=== PATIENT | female | born 1975 | race Caucasian/White ===

== ENCOUNTER 2017-11-17 19:23 | Inpatient (IN) | payer BC ==
--- NOTE | 2017-11-17 19:41 | PDOC ---
History of Present Illness - General Stated Complaint: LAP BAND SURGERY Time Seen by Provider: 11/17/17 19:41 - History of Present Illness Initial Comments: 11/17/17 19:47 42 year old female with PMH of lap band surgery (2011) who presents with 3 days of vomiting. Notes she was at an event on evening had some champagne and started vomiting. Vomiting persisted, patient went to ED in [facility] where surgeons in consultation with patient's primary surgeon (Dr. Cadena) deflated lap band. Patient instructed to come to ED at our hospital for evaluation and admission for lap band removal. Patient denies chest pain, shortness of breath, fevers/chills, dysuria/ hematuria. NKDA Surgical: lap band gastrectomy Social: denies cigarettes, social alcohol, denies recreational drugs PMD: Past History - Past Medical History Allergies/Adverse Reactions: Allergies Allergy/AdvReac Type Severity Reaction Status Date / Time tomato Allergy Verified 11/17/17 19:45 Home Medications: Ambulatory Orders NK [No Known Home Medication] 11/17/17 Anemia: Yes COPD: No Other medical history: donated kidney - Surgical History Abdominal Surgery: Yes (Lap band, tightening 11/15/17) Cholecystectomy: Yes - Suicide/Smoking/Psychosocial Hx Smoking History: Never smoked Review of Systems - Review of Systems Constitutional: No: Chills, Fever HEENTM: No: Eye Pain, Recent change in vision Respiratory: No: Shortness of Breath, Stridor, Wheezing Cardiac (ROS): No: Chest Pain, Lightheadedness, Palpitations, Syncope ABD/GI: Yes: Nausea, Vomiting. No: Constipated, Diarrhea : No: Burning, Dysuria *Physical Exam - Physical Exam General Appearance: Yes: Nourished, Appropriately Dressed Neck: positive: Trachea midline, Supple Respiratory/Chest: positive: Lungs Clear, Normal Breath Sounds Cardiovascular: positive: S1, S2 Gastrointestinal/Abdominal: positive: Flat, Soft. negative: Guarding, Rebound, Tenderness, Hernia, Mass Extremity: positive: Normal Capillary Refill, Normal Inspection Integumentary: positive: Normal Color, Dry, Warm Neurologic: positive: Fully Oriented, Alert ED Treatment Course - LABORATORY CBC & Chemistry Diagram: 11/17/17 19:30 11/17/17 19:30 Medical Decision Making - Medical Decision Making 11/17/17 19:47 42 year old non-toxic female presents with dislodged lap band. As per Dr. Bliss patient had flouroscopic evaluation which should dislodged lap band. Will check electrolytes as patient has 2 day h/o emesis, replete as necessary and admit to medicine. As per nursing staff patient has pre-arranged bed on inpatient medicine floor. 11/17/17 20:23 CMP unremarkable. BP 107/67. Will give 1 L NS + Morphine for pain. Hospitalist paged for admission. 11/17/17 21:02 Case d/w Dr. Tovar. Accepts for admission. *DC/Admit/Observation/Transfer Diagnosis at time of Disposition: Admission for adjustment of gastric lap band - Discharge Dispostion Condition at time of disposition: Fair Decision to Admit order: Yes - Referrals - Patient Instructions - Post Discharge Activity
[2017-11-17 19:45] VITALS: BMI 28.6
[2017-11-17 19:48] LABS: BASO % 0.4 % (0-2.0); HEMATOCRIT 32.1 % (32.4-45.2); HEMOGLOBIN 10.2 GM/dL (10.7-15.3); LYMPH % 2.6 % (8-40); MCH 22.9 pg (25.7-33.7); MCHC 31.8 g/dl (32.0-36.0); MEAN CELL VOLUME 72.2 fl (80-96); MONO % 3.5 % (3.8-10.2); NEUT % 93.5 % (42.8-82.8); PLATELET COUNT 207 K/MM3 (134-434); RBC 4.44 M/mm3 (3.60-5.2); WHITE BLOOD COUNT 10.7 K/mm3 (4.0-10.0)
--- NOTE | 2017-11-17 20:02 | PDOC ---
Attending Attestation - HPI HPI: 11/17/17 20:32 Patient is a 42 year old female with no significant past medical history who presents to the ED with complaints of vomiting that began x3 days ago. Patient reports experiencing multiple episodes of vomiting that began 3 days ago as well as associated symptoms of diffuse abdominal pain. She reports being at an event when she began to experience intense abdominal pain after consuming alcohol, prompting her to go to [facility] for further evaluation. She reports physicians consulted with her surgeon who then advised her to come into the ED to be admitted for lap band removal . Denies chest pain, sob. Denies fevers, chills. Denies contact with sick individuals, out of state travelling. Denies diarrhea, constipation, dysuria, hematuria. Denies any other symptoms. Allergies: Tomato Social history: No smoking. No alcohol. No illicit drugs. Surgical history: lap band gastrectomy (s/p 2011) PMD: None Surgeon: Dr. Cadena - Physicial Exam PE: 11/17/17 21:06 GENERAL: Awake, alert, and fully oriented, in no acute distress HEAD: No signs of trauma EYES: +Sunken PERRLA, EOMI, sclera anicteric, conjunctiva clear ENT: Auricles normal inspection, hearing grossly normal, nares patent, oropharynx clear without exudates. Moist mucosa NECK: Normal ROM, supple, no lymphadenopathy, JVD, or masses LUNGS: Breath sounds equal, clear to auscultation bilaterally. No wheezes, and no crackles HEART: Regular rate and rhythm, normal S1 and S2, no murmurs, rubs or gallops ABDOMEN: +Slight epigastric tenderness. Soft, nontender, normoactive bowel sounds. No guarding, no rebound. No masses EXTREMITIES: Normal range of motion, no edema. No clubbing or cyanosis. No cords, erythema, or tenderness NEUROLOGICAL: Cranial nerves II through XII grossly intact. Normal speech, normal gait SKIN: +Pale Warm, Dry, no rashes or lesions noted. <Theodore Cotto - Last Filed: 11/17/17 21:06> - Resident Resident Name: Ivy Recio - ED Attending Attestation I have performed the following: I have examined & evaluated the patient, The case was reviewed & discussed with the resident, I agree w/resident's findings & plan - Medical Decision Making 11/17/17 21:05 Pt refusing CXR; she will be admitted to Hospitalist. Dr Cadena will come see the patient tomorrow. <Shwetha Conroy - Last Filed: 11/18/17 20:35>
[2017-11-17 20:16] LABS: ALBUMIN 3.5 g/dl (3.4-5.0); ANION GAP 9 (8-16); BLOOD UREA NITROGEN 20 mg/dL (7-18); CALCIUM 8.9 mg/dL (8.5-10.1); CHLORIDE 111 mmol/L (98-107); CO2 22 mmol/L (21-32); CREATININE 0.8 mg/dL (0.55-1.02); GLUCOSE,RANDOM 128 mg/dL (74-106); POTASSIUM 3.9 mmol/L (3.5-5.1); SGOT/AST 57 U/L (15-37); SGPT/ALT 32 U/L (12-78); SODIUM 142 mmol/L (136-145)
[2017-11-17 20:18] LABS: ALK PHOS 99 U/L (45-117); TOT PROT 6.4 g/dl (6.4-8.2)
[2017-11-17] MEDS ORDERED: SODIUM CHLORIDE 0.9% 500 ML INFUS.BAG IV ONE (20:25)
[2017-11-17 20:26] LABS: INR 1.09 (0.82-1.09); PROTHROMBIN TIME (PATIENT) 12.3 SEC (9.7-13.0)
[2017-11-17] MEDS ORDERED: morphine CARPU-JECT 2 MG/1 ML DISP.SYRIN IVPUSH ONE (20:26)
[2017-11-17 20:28] LABS: ACTIVATED PTT 24.8 SECONDS (25.2-36.5)
[2017-11-17] MEDS ORDERED: MORPHINE SULFATE 2 MG/ML VIAL ONE (20:34)
[2017-11-17] MEDS ORDERED: METOCLOPRAMIDE HCL INJECTION 10 MG/2 ML VIAL ONE (20:43)
[2017-11-17 20:52] LABS: ANISOCYTOSIS 1+; MACROCYTOSIS 1+; OVALOCYTE 1+; PLATELET ESTIMATE ADEQUATE
[2017-11-17] MEDS ORDERED: METOCLOPRAMIDE HCL INJECTION 10 MG/2 ML VIAL IVPUSH ONE (20:52)
[2017-11-17] MEDS ORDERED: ONDANSETRON 4 MG/2 ML VIAL IVPUSH PRN (21:05)
[2017-11-17] MEDS ORDERED: ACETAMINOPHEN 325 MG TABLET (FP) PO PRN (21:16)
--- NOTE | 2017-11-17 21:22 | HP ---
CHIEF COMPLAINT: vomiting, lap band dysfunction HISTORY OF PRESENT ILLNESS: 42 year old female with PMH of lap band surgery (2011) and "gastric bypass" who presents with 3 days of vomiting and abdominal pain. Patient was at a constitution party several days ago, had 1 glass of champagne and began to vomit, have chills and diaphoresis. She visited the emergency department in [place], [place], where she was told that her lap band was dislodged. Patient's surgery was performed by Dr. Cadena and so patient was sent here for evaluation and lap band removal. Currently patient is not complaining of any vomiting and pain. Denies chest pain , SOB, nausea, vomiting, diarrhea, fevers, chills. Patient had a colonoscopy in the past and is due for one this year. She has a family history of colorectal cancer in the father. ER course was notable for: (1) WBC 10.7 (2) (3) Recent Travel: none PAST MEDICAL HISTORY: none PAST SURGICAL HISTORY: lap band insertion, gastric bypass? Social History: Smoking: denies Alcohol: denies Drugs: denies Allergies tomato Allergy (Verified 11/17/17 19:45) Family History: colon cancer in father HOME MEDICATIONS: Home Medications Medication Instructions Recorded NK [No Known Home Medication] 11/17/17 REVIEW OF SYSTEMS CONSTITUTIONAL: Absent: fever, chills, diaphoresis, generalized weakness, malaise, loss of appetite, weight change HEENT: Absent: rhinorrhea, nasal congestion, throat pain, throat swelling, difficulty swallowing, mouth swelling, ear pain, eye pain, visual changes CARDIOVASCULAR: Absent: chest pain, syncope, palpitations, irregular heart rate, lightheadedness , peripheral edema RESPIRATORY: Absent: cough, shortness of breath, dyspnea with exertion, orthopnea, wheezing, stridor, hemoptysis GASTROINTESTINAL: Absent: abdominal pain, abdominal distension, nausea, vomiting, diarrhea, constipation, melena, hematochezia GENITOURINARY: Absent: dysuria, frequency, urgency, hesitancy, hematuria, flank pain, genital pain MUSCULOSKELETAL: Absent: myalgia, arthralgia, joint swelling, back pain, neck pain SKIN: Absent: rash, itching, pallor HEMATOLOGIC/IMMUNOLOGIC: Absent: easy bleeding, easy bruising, lymphadenopathy, frequent infections ENDOCRINE: Absent: unexplained weight gain, unexplained weight loss, heat intolerance, cold intolerance NEUROLOGIC: Absent: headache, focal weakness or paresthesias, dizziness, unsteady gait, seizure, mental status changes, bladder or bowel incontinence PSYCHIATRIC: Absent: anxiety, depression, suicidal or homicidal ideation, hallucinations. PHYSICAL EXAMINATION Vital Signs - 24 hr 11/17/17 11/17/17 19:25 20:42 Temperature 98.5 F Pulse Rate 90 Respiratory 1 L Rate Blood Pressure 107/76 O2 Sat by Pulse 100 100 Oximetry (%) GENERAL: A&Ox3, no acute distress EYES: PERRLA, EOMI ENT: Moist mucus membranes NECK: No JVD LUNGS: CTA, no wheezes HEART: RRR, no murmurs ABDOMEN: Soft, nontender, lap band palpated in mid-epigastrum, diminished bowel sounds noted MUSCULOSKELETAL: No CVA Tenderness EXTREMITIES: 2+ pulses, no edema. NEUROLOGICAL: Cranial nerves II-XII intact. Laboratory Results - last 24 hr 11/17/17 11/17/17 11/17/17 19:30 19:30 19:30 WBC 10.7 H RBC 4.44 Hgb 10.2 L Hct 32.1 L MCV 72.2 L MCH 22.9 L MCHC 31.8 L RDW 18.0 H Plt Count 207 MPV 9.0 Absolute Neuts (auto) 10.0 Total Counted 100 Neutrophils % 93.5 H Neutrophils % (Manual) 94.0 H Lymphocytes % 2.6 L Lymphocytes % (Manual) 5.0 L Monocytes % 3.5 L Monocytes % (Manual) 1 L Eosinophils % 0.0 Basophils % 0.4 Nucleated RBC % 0 Hypochromia 1+ Platelet Estimate Adequate Platelet Comment No clumping noted Anisocytosis 1+ Macrocytosis 1+ Ovalocytes 1+ PT with INR 12.30 INR 1.09 PTT (Actin FS) 24.8 L Sodium 142 Potassium 3.9 Chloride 111 H Carbon Dioxide 22 Anion Gap 9 BUN 20 H Creatinine 0.8 Creat Clearance w eGFR > 60 Random Glucose 128 H Calcium 8.9 Total Bilirubin 1.0 AST 57 H ALT 32 Alkaline Phosphatase 99 Total Protein 6.4 Albumin 3.5 ASSESSMENT/PLAN: 42 year old female with a hx of lap band placement/gastric bypass (questionable ) presents for vomiting and abdominal pain of 3 days duration likely 2/2 lap band dysfunction #Abdominal pain 2/2 lap band dysfunction: resolving, patient is not in pain at present -consult Dr. Cadena appreciated -tylenol for pain -NPO for procedure tomorrow -IVF hydration w/ NS @ 83cc/hr -zofran for nausea #FEN -IVF w/ NS @ 83cc/hr -replete lytes in AM -NPO #Prophylaxis -SCDs #Disposition -admit med surg Visit type - Emergency Visit Emergency Visit: Yes ED Registration Date: 11/17/17 Care time: The patient presented to the Emergency Department on the above date and was hospitalized for further evaluation of their emergent condition. - New Patient This patient is new to me today: Yes Date on this admission: 11/18/17 - Critical Care Critical Care patient: No Hospitalist Screening - Colonoscopy Questionnaire Colonoscopy Questionnaire: Colonoscopy Questionnaire - Patient: 50 - 75 years old and never had a screening colonoscopy: Unknown History of colon or rectal polyps, or CA: Unknown History of IBD, Crohn's disease or UC: Unknown History of abdominal radiation therapy as a child: Unknown - Relative: 1 with colon or rectal CA, or polyps at age 60 or younger: Unknown Colon or rectal CA diagnosed at age 45 or younger: Unknown Multiple relatives with colon or rectal CA: Unknown - Outcome: Screening Result: Negative Screen
--- NOTE | 2017-11-18 03:18 | PN ---
Teaching Attending Note Name of Resident: Diony Zhu ATTENDING PHYSICIAN STATEMENT I saw and evaluated the patient. Chart, data, imaging reviewed. I reviewed the resident's note and discussed the case with the resident. I agree with the resident's findings and plan as documented. SUBJECTIVE: 42 year old female with PMH of lap band surgery (2011) and "gastric bypass" c/o 3 days of vomiting and abdominal pain which started about 4 days ago, roughly the same time after pt's lap band was adjusted by Dr. Cadena in the office. She was seen in [facility], underwent - Barium swallow? study, was informed that her lap band was dislodged and urged to go to [facility] to see Dr. Cadena. OBJECTIVE: Last Vital Signs Temp Pulse Resp BP Pulse Ox 98.0 F 67 18 115/70 99 11/17/17 22:00 11/17/17 22:00 11/18/17 04:00 11/17/17 22:00 11/18/17 04:00 general- nad, aaox3 heent -moist oral mucosa neck -supple cv-s1+s2+rrr chest cta abdomen-soft, bs+, nt ext- no pedal edema Abnormal Lab Results 11/17/17 11/17/17 11/17/17 19:30 19:30 19:30 WBC 10.7 H Hgb 10.2 L Hct 32.1 L MCV 72.2 L MCH 22.9 L MCHC 31.8 L RDW 18.0 H Neutrophils % 93.5 H Neutrophils % (Manual) 94.0 H Lymphocytes % 2.6 L Lymphocytes % (Manual) 5.0 L Monocytes % 3.5 L Monocytes % (Manual) 1 L PTT (Actin FS) 24.8 L Chloride 111 H BUN 20 H Random Glucose 128 H AST 57 H ASSESSMENT AND PLAN: 42yo woman with nausea/vomiting likely secondary to dislodged lap band. - observation -surgery consult- Dr. Cadena -IV fluid hydration -zofran IV prn if nausea or vomiting -NPO for now -heparin sc for dvt prophylaxis -type and screen, coags
[2017-11-18 08:03] LABS: HEMATOCRIT 30.5 % (32.4-45.2); HEMOGLOBIN 9.7 GM/dL (10.7-15.3); MCH 22.8 pg (25.7-33.7); MCHC 31.8 g/dl (32.0-36.0); MEAN CELL VOLUME 71.5 fl (80-96); PLATELET COUNT 207 K/MM3 (134-434); RBC 4.26 M/mm3 (3.60-5.2); RDW 17.8 % (11.6-15.6); WHITE BLOOD COUNT 9.2 K/mm3 (4.0-10.0)
[2017-11-18 08:12] LABS: ANION GAP 5 (8-16); BLOOD UREA NITROGEN 15 mg/dL (7-18); CALCIUM 9.3 mg/dL (8.5-10.1); CHLORIDE 109 mmol/L (98-107); CO2 25 mmol/L (21-32); CREATININE 0.8 mg/dL (0.55-1.02); GLUCOSE,RANDOM 92 mg/dL (74-106); MAGNESIUM 2.2 mg/dL (1.8-2.4); POTASSIUM 3.7 mmol/L (3.5-5.1); SODIUM 139 mmol/L (136-145)
[2017-11-18] MEDS: SODIUM CHLORIDE 1,000 ML IV SCH ×2 (08:49→22:01)
[2017-11-18] MEDS ORDERED: ACETAMINOPHEN 1000 MG/100 ML VIAL (NON FORMULARY) IVPB ONE (11:28)
--- NOTE | 2017-11-18 13:34 | CONSULT ---
Consult - text type - Consultation Consultation Note: 42 y.o. female transferred from [facility] 11/17/2017. with slipped gastric band. Pt had band loosened in ER at [facility] but pt still had nausea and vomiting. Barium swallow showed no contrast went thru band. Pt had previous gastric bypass originally, then band over the bypass for weight regain. PMHx- anemia, infertility PSHx- Gastric bypass; Lap-Band; IVF Embryo Transfer Meds- Colace All-NKA P/E- Abd- non-distended, soft non-tender WBC-9.2 H/H-9.7/30.5 Na-139 K-3.7 CL-109 CO2-25 Glu-92 BUN-15 CR-0.8 I- Slipped Gastric Band with gastric obstruction Vomiting, Nausea P- NPO except rare ice chips NPO after midnight for surgery 11/19/2017 Cont IV fluids Zofran, MSO4 as needed
[2017-11-18] MEDS ORDERED: MORPHINE SULFATE 2 MG/ML VIAL IVPUSH PRN (13:38)
--- NOTE | 2017-11-18 14:16 | EKG ---
Test Reason : Blood Pressure : / mmHG Vent. Rate : 058 BPM Atrial Rate : 058 BPM P-R Int : 126 ms QRS Dur : 088 ms QT Int : 442 ms P-R-T Axes : 029 017 022 degrees QTc Int : 433 ms SINUS BRADYCARDIA LOW VOLTAGE QRS BORDERLINE ECG NO PREVIOUS ECGS AVAILABLE Confirmed by Gideon Villarreal ([id number]) on 11/18/2017 2:16:28 PM Referred By: Confirmed By:Gideon Villarreal
--- NOTE | 2017-11-18 14:47 | PN ---
Progress Note (short form) - Note Progress Note: Subjective: no fever or chills, feels better . Has no N/V now. Objective: Vital Signs: Last Vital Signs Temp Pulse Resp BP Pulse Ox 98.2 F 52 L 20 103/57 99 11/18/17 14:22 11/18/17 14:22 11/18/17 14:22 11/18/17 14:22 11/18/17 09:00 Laboratory Results - last 24 hr 11/17/17 11/17/17 11/17/17 19:30 19:30 19:30 WBC 10.7 H RBC 4.44 Hgb 10.2 L Hct 32.1 L MCV 72.2 L MCH 22.9 L MCHC 31.8 L RDW 18.0 H Plt Count 207 MPV 9.0 Absolute Neuts (auto) 10.0 Total Counted 100 Neutrophils % 93.5 H Neutrophils % (Manual) 94.0 H Lymphocytes % 2.6 L Lymphocytes % (Manual) 5.0 L Monocytes % 3.5 L Monocytes % (Manual) 1 L Eosinophils % 0.0 Basophils % 0.4 Nucleated RBC % 0 Hypochromia 1+ Platelet Estimate Adequate Platelet Comment No clumping noted Anisocytosis 1+ Macrocytosis 1+ Ovalocytes 1+ PT with INR 12.30 INR 1.09 PTT (Actin FS) 24.8 L Sodium 142 Potassium 3.9 Chloride 111 H Carbon Dioxide 22 Anion Gap 9 BUN 20 H Creatinine 0.8 Creat Clearance w eGFR > 60 Random Glucose 128 H Calcium 8.9 Magnesium Total Bilirubin 1.0 AST 57 H ALT 32 Alkaline Phosphatase 99 Total Protein 6.4 Albumin 3.5 Blood Type Antibody Screen 11/17/17 11/17/17 11/18/17 21:30 21:40 06:15 WBC 9.2 RBC 4.26 Hgb 9.7 L Hct 30.5 L MCV 71.5 L MCH 22.8 L MCHC 31.8 L RDW 17.8 H Plt Count 207 MPV 9.0 Absolute Neuts (auto) Total Counted Neutrophils % Neutrophils % (Manual) Lymphocytes % Lymphocytes % (Manual) Monocytes % Monocytes % (Manual) Eosinophils % Basophils % Nucleated RBC % Hypochromia Platelet Estimate Platelet Comment Anisocytosis Macrocytosis Ovalocytes PT with INR INR PTT (Actin FS) Sodium Potassium Chloride Carbon Dioxide Anion Gap BUN Creatinine Creat Clearance w eGFR Random Glucose Calcium Magnesium Total Bilirubin AST ALT Alkaline Phosphatase Total Protein Albumin Blood Type A POSITIVE A POSITIVE Antibody Screen Negative 11/18/17 06:15 WBC RBC Hgb Hct MCV MCH MCHC RDW Plt Count MPV Absolute Neuts (auto) Total Counted Neutrophils % Neutrophils % (Manual) Lymphocytes % Lymphocytes % (Manual) Monocytes % Monocytes % (Manual) Eosinophils % Basophils % Nucleated RBC % Hypochromia Platelet Estimate Platelet Comment Anisocytosis Macrocytosis Ovalocytes PT with INR INR PTT (Actin FS) Sodium 139 Potassium 3.7 Chloride 109 H Carbon Dioxide 25 Anion Gap 5 L BUN 15 Creatinine 0.8 Creat Clearance w eGFR > 60 Random Glucose 92 Calcium 9.3 Magnesium 2.2 Total Bilirubin AST ALT Alkaline Phosphatase Total Protein Albumin Blood Type Antibody Screen Physical Exam: NAD , MMM, RRR Lungs: CATB Abd: soft, ND, TTP in epigastric area , nl BS . EXt: no edema Assessment/Plan: 42 y/o lady with h/o obesity , gastric bypass sx , in 2001, followed by gastric banding , who presented with N/V and abd pain to OSH , and transferred here as she was found to have a slipped gastric banding 1- Slipped gastric banding : - NPO - IVF - for OR tomorro w -monitor electrolytes. 2- Microcytic anemia : likely iron def from nutritional def - check iron studies. - does nto take supp at home 3- DVT px : ambulatory . Visit type - Emergency Visit Emergency Visit: Yes ED Registration Date: 11/17/17 Care time: The patient presented to the Emergency Department on the above date and was hospitalized for further evaluation of their emergent condition. - New Patient This patient is new to me today: Yes Date on this admission: 11/18/17 - Critical Care Critical Care patient: No
[2017-11-19 08:15] LABS: HEMATOCRIT 28.1 % (32.4-45.2); HEMOGLOBIN 8.8 GM/dL (10.7-15.3); MCH 22.8 pg (25.7-33.7); MCHC 31.5 g/dl (32.0-36.0); MEAN CELL VOLUME 72.4 fl (80-96); PLATELET COUNT 142 K/MM3 (134-434); RBC 3.88 M/mm3 (3.60-5.2)
[2017-11-19 08:44] LABS: ANION GAP 8 (8-16); BLOOD UREA NITROGEN 14 mg/dL (7-18); CALCIUM 8.8 mg/dL (8.5-10.1); CHLORIDE 110 mmol/L (98-107); CO2 24 mmol/L (21-32); GLUCOSE,RANDOM 66 mg/dL (74-106); POTASSIUM 3.6 mmol/L (3.5-5.1); SODIUM 142 mmol/L (136-145)
[2017-11-19 08:47] LABS: ALK PHOS 158 U/L (45-117); BILIRUBIN,TOTAL 0.5 mg/dL (0.2-1.0); CREATININE 0.6 mg/dL (0.55-1.02); SGOT/AST 95 U/L (15-37); SGPT/ALT 94 U/L (12-78); TOT PROT 5.6 g/dl (6.4-8.2)
[2017-11-19] MEDS ORDERED: SUCCINYLCHOLINE CHLORIDE 200 MG/10 ML VIAL ONE (11:08)
[2017-11-19] MEDS ORDERED: PROPOFOL 20 ML ONE ×2 (11:08→11:09)
[2017-11-19] MEDS ORDERED: MIDAZOLAM HCL 2 MG/2 ML SINGLE DOSE VIAL ONE (11:08)
[2017-11-19] MEDS ORDERED: fentaNYL CITRATE 250 MCG/5 ML VIAL ONE (11:08)
[2017-11-19] MEDS ORDERED: ROCURONIUM BROMIDE 50 MG/5 ML VIAL ONE (11:09)
[2017-11-19] MEDS ORDERED: LIDOCAINE HCL/PF 2% SDV 5ML VIAL ONE (11:11)
[2017-11-19] MEDS ORDERED: LACTATED RINGERS SOLUTION 1,000 ML IV SCH (11:15)
[2017-11-19] MEDS ORDERED: DEXTROSE 5%-NORMAL SALINE 1,000 ML IV SCH (11:15)
[2017-11-19] MEDS ORDERED: ceFAZolin SODIUM 1 GM VIAL ONE (11:31)
[2017-11-19] MEDS ORDERED: ceFAZolin SODIUM 1 GM VIAL IVPB ONE (11:39)
[2017-11-19] MEDS ORDERED: DEXAMETHASONE SOD PHOSPHATE 4 MG/1 ML VIAL ONE (11:55)
[2017-11-19] MEDS ORDERED: BUPIVACAINE HCL/PF (5 MG/ML) 30 ML VIAL IJ ONE (13:00)
[2017-11-19] MEDS ORDERED: oxyCODONE HCL 5 MG TABLET PO PRN (13:09)
[2017-11-19] MEDS ORDERED: SODIUM CHLORIDE 1,000 ML IV SCH (13:15)
--- NOTE | 2017-11-19 13:23 | OP ---
Operative Note - Note: Operative Date: 11/19/17 Pre-Operative Diagnosis: Epigastric Pain. Vomiting. Mechanical complication of implantable device secondary to slipped gastric basnd Operation: removal of gastric band plus subcutaneous port component. Wedge biopsy of left lobe of liver. Laparoscopic lysis of adhesions. Excision of fibrous capsule around stomach. Diagnostic Laparoscopy Findings: Band slipped to distal stomach and very enlarged stomach above the band noted. scar tissue lysed and fibrous capsule removed from around stomach Enlarged left lobe of liver noted and wedge biopsy performed Post-Operative Diagnosis: Same as Pre-op (abdominal adhesions;fibrous capsule around stomach;hepatomegaly) Surgeon: Judson Cadena [employer] Technician: María Elena Delcid Anesthesia: General Specimens Removed: gastric band plus subcutaneous port component. wedge biopsy of left lobe of liver Estimated Blood Loss (mls): 30 Operative Report Dictated: Yes
--- NOTE | 2017-11-19 13:56 | SURG ---
Surgery Service Member Note Service Member: María Elena Delcid PA-C Date of Service: 11/19/17 Diagnosis: Epigastric Pain. Vomiting. Mechanical complication of implantable device secondary to slipped gastric band Procedure: removal of gastric band plus subcutaneous port component. Wedge biopsy of left lobe of liver. Laparoscopic lysis of adhesions. Excision of fibrous capsule around stomach. Diagnostic Laparoscopy I was present for the entirety of the operative procedure. For further detail, please refer to operative report. Visit type - Case Type Case Type: ED Admission - Emergency Emergency Visit: Yes ED Registration Date: 11/17/17 Care time: The patient presented to the Emergency Department on the above date and was hospitalized for further evaluation of their emergent condition. - New patient This patient is new to me today: Yes Date on this admission: 11/19/17
[2017-11-19] MEDS ORDERED: FAMOTIDINE 20 MG/50 ML IVPB 20 MG/50 ML MG IVPB ONE (14:07)
[2017-11-19 15:07] LABS: HEMATOCRIT 29.3 % (32.4-45.2); HEMOGLOBIN 9.3 GM/dL (10.7-15.3); MCH 22.8 pg (25.7-33.7); MCHC 31.7 g/dl (32.0-36.0); MEAN CELL VOLUME 72.1 fl (80-96); MEAN PLT VOLUME 9.9 fl (7.5-11.1); PLATELET COUNT 156 K/MM3 (134-434); RBC 4.07 M/mm3 (3.60-5.2); RDW 18.1 % (11.6-15.6); WHITE BLOOD COUNT 5.3 K/mm3 (4.0-10.0)
[2017-11-19 15:31] LABS: ANION GAP 8 (8-16); BLOOD UREA NITROGEN 14 mg/dL (7-18); CALCIUM 8.9 mg/dL (8.5-10.1); CHLORIDE 107 mmol/L (98-107); CO2 24 mmol/L (21-32); CREATININE 0.7 mg/dL (0.55-1.02); GLUCOSE,RANDOM 73 mg/dL (74-106); POTASSIUM 3.7 mmol/L (3.5-5.1); SODIUM 139 mmol/L (136-145)
[2017-11-19 16:01] LABS: ALBUMIN 3.1 g/dl (3.4-5.0); ALK PHOS 161 U/L (45-117); BILIRUBIN,DIRECT 0.2 mg/dL (0.0-0.2); BILIRUBIN,TOTAL 0.4 mg/dL (0.2-1.0); SGOT/AST 88 U/L (15-37); SGPT/ALT 89 U/L (12-78); TOT PROT 5.8 g/dl (6.4-8.2)
--- NOTE | 2017-11-19 16:27 | PN ---
Teaching Attending Note Name of Resident: Eloise Awan ATTENDING PHYSICIAN STATEMENT I saw and evaluated the patient. I reviewed the resident's note and discussed the case with the resident. I agree with the resident's findings and plan as documented. SUBJECTIVE: seen after her surgery No fever or chills. has abdominal discomfort " sore ". No N/V. did not pass gas yet. OBJECTIVE: NAD, MMM, RRR Lungs: CATB , decreased breath sounds at bases Abd: soft, ND, hypoactive BS, TTP in all quadrants. tape over laparoscopic wounds. EXt: no edema Assessment/Plan: 42 y/o lady with h/o obesity , gastric bypass sx , in 2001, followed by gastric banding , who presented with N/V and abd pain to OSH , and transferred here as she was found to have a slipped gastric banding 1- Slipped gastric banding: s/p laparoscopic removal of band, adhesion lysis , an dliver BS due to enlarged L lobe - trial of liquids . - if tolerated , can resume soft diet with thin liquids as tolerated - f/u with sx as out pt 2- Microcytic anemia: likely iron def from nutritional def. ferritin on lower side , rest of iron studies pending - start iron supplements . stool softeners - rest of w/u as out pt 3- Elevated LFTS . no clear etiology. liver is enlarged. ? fatty liver . per resident exam this am , before Sx , there was no RUQ tenderness to suggest stones or cholecystitis will give prescription for LFTs in few days f/u with PCP Dispo: PT demands to go home, case was d/w Dr. Cadena by resident, who recommended patient is safe for dc . f/u as out pt she is advised to establish care with PCP ( follows with different ones) Educated about alarming signs to call MD or come to ER after dc DC home
--- NOTE | 2017-11-19 18:00 | DS ---
Physical Exam: SUBJECTIVE: Patient seen and examined with no acute complaints. OBJECTIVE: Vital Signs Period Temp Pulse Resp BP Sys/Kraft Pulse Ox Last 24 Hr 97.7 F-98.5 F 47-74 16-20 105-125/66-77 99-100 PHYSICAL EXAM GENERAL: A&Ox3, no acute distress EYES: PERRLA, EOMI ENT: Moist mucus membranes NECK: No JVD LUNGS: CTA, no wheezes HEART: RRR, no murmurs ABDOMEN: Soft, nontender, nondistended. No abdominal masses/bruits. MUSCULOSKELETAL: 5/5 strength in U/L B/L extremities. EXTREMITIES: 2+ pulses, no edema. NEUROLOGICAL: Cranial nerves II-XII intact. LABS Laboratory Results - last 24 hr 11/19/17 11/19/17 11/19/17 06:20 06:20 06:20 WBC 4.0 RBC 3.88 Hgb 8.8 L Hct 28.1 L MCV 72.4 L MCH 22.8 L MCHC 31.5 L RDW 18.0 H Plt Count 142 D MPV 9.0 Sodium 142 Potassium 3.6 Chloride 110 H Carbon Dioxide 24 Anion Gap 8 BUN 14 Creatinine 0.6 Creat Clearance w eGFR > 60 Random Glucose 66 L Calcium 8.8 Ferritin 19.3 Total Bilirubin 0.5 Direct Bilirubin AST 95 H ALT 94 H Alkaline Phosphatase 158 H D Total Protein 5.6 L Albumin 3.0 L 11/19/17 11/19/17 14:30 14:30 WBC 5.3 RBC 4.07 Hgb 9.3 L Hct 29.3 L MCV 72.1 L MCH 22.8 L MCHC 31.7 L RDW 18.1 H Plt Count 156 MPV 9.9 Sodium 139 Potassium 3.7 Chloride 107 Carbon Dioxide 24 Anion Gap 8 BUN 14 Creatinine 0.7 Creat Clearance w eGFR > 60 Random Glucose 73 L Calcium 8.9 Ferritin Total Bilirubin 0.4 Direct Bilirubin 0.2 AST 88 H ALT 89 H Alkaline Phosphatase 161 H Total Protein 5.8 L Albumin 3.1 L HOSPITAL COURSE: Abd xray: Lap band device left upper quadrant. L upper quadrant not fully delineated. Constipation. Please note best way to evaluated lap device is w/ limited GI series. 42F with pmhx of lap band surgery (2011) and gastric bypass presented w/ 3 days of vomiting and abdominal pain sent by the ED at [facility]. Upon abd xray imaging, lap band was visualized in L upper quadrant and was further evaluated w/ a barium swallow study that revealed no contrast passing through location of band. Dr. Cadena was consulted and proceeded with a laparoscopic surgery to remove gastric band as it had slipped to the distal stomach resulting in a very enlarged stomach proximal to band. Additionally, a wedge biopsy was performed of the L lobe of liver for pathological analysis due to a grossly enlarged liver. Due to increased LFTs prior to surgery, lab referral was given to patient for repeat CBC and LFTs following discharge. Pt was also instructed to take Pepcid, Percocet, and Feosol as directed and to follow up with Dr. Sullivan in 2 weeks for post-op visit and f/u of liver biopsy. Date of Admission:11/17/17 Date of Discharge: 11/19/17 Minutes to complete discharge: 35 Discharge Summary Reason For Visit: PITTING AND ADJUSTMENT OF GASTRIC LAP BAND Current Active Problems Iron (Fe) deficiency anemia (Chronic) Condition: Improved - Instructions Diet, Activity, Other Instructions: You were admitted to the hospital for persistent vomiting and abdominal pain with a history of a lap band placement done in 2011. On imaging, you were found to have a dislodged lap band that was surgically removed by Dr. Cadena. In addition, part of your liver was biopsied with recommendation to follow up with the surgeon regarding the results. Your labs showed elevated liver enzymes in which you were given a lab referral to follow up for a repeat liver enzyme and complete blood count lab test. Please see the surgeon's recommendations below on your diet for the next few days. MEDICAL RECOMMENDATIONS Please take Oxycodone 1 tab by mouth every 6 hours for pain Please take Famotidine 20 mg by mouth twice a day. Please take ferrous sulfate twice a day initially then increase to three times a day after a week .. please take stool softeners CONSULT RECOMMENDATIONS Please follow up with your primary care physician in 1 week of discharge home. We have included a referral to the resident clinic if you are unable to find a primary care provider. Please follow up with your surgeon, Dr. Cadena in 2 weeks. You may start with a soft diet and liquids for the next 48 hours, then advance to a regular diet as tolerated on 11/21/2017 You may may shower beginning 11/22/2017 No lifting over 30 pounds for 4 weeks If you begin to experience worsening abdominal pain, nausea, vomiting, fever chills or if any of your symptoms become worse, please call your surgeon or return to the emergency department. please follow with GI doctor to evaluate your abnormal liver tests and your enlarged liver. we refer you to Dr. Adams . Referrals: [facility] [place] [Provider Group] Judson Cadena MD [Staff Physician] - 2 Weeks Mikey Adams MD [Staff Physician] - Disposition: HOME - Home Medications Comprehensive Discharge Medication List: Ambulatory Orders Famotidine [Pepcid] 20 mg PO BID #60 tablet 11/19/17 Ferrous Sulfate [Feosol] 325 mg PO TID #90 tablet 11/19/17 Miscellaneous Drug Not In Syst [Outpatient Lab Test] 1 each ASDIR #1 misc Oxycodone HCl/Acetaminophen [Percocet 5-325 mg Tablet] 1 tab PO Q6H PRN #20 tablet MDD 4 11/19/17 This patient is new to me today: Yes Date on this admission: 11/19/17 Emergency Visit: No Critical Care patient: No - Discharge Referral Referred to [facility] No
[2017-11-19 18:52] VITALS: PULSE 56
[2017-11-19 18:53] VITALS: BP 109/72; TEMP 98.9
--- NOTE | 2017-11-19 20:03 | OP ---
DATE OF OPERATION: 11/19/2017 PREOPERATIVE DIAGNOSES: 1. Epigastric abdominal pain. 2. Vomiting. 3. Mechanical complication of implantable device secondary to slipped gastric band. POSTOPERATIVE DIAGNOSES: 1. Epigastric abdominal pain. 2. Vomiting. 3. Mechanical complication of implantable device secondary to slipped gastric band. 4. Abdominal adhesions. 5. Fibrous capsule around the stomach. 6. Hepatomegaly. PROCEDURE PERFORMED: 1. Removal of gastric band plus subcutaneous port component. 2. Wedge biopsy of left lobe of liver. 3. Laparoscopic lysis of adhesions. 4. Excision of fibrous capsule around the stomach. 5. Diagnostic laparoscopy. OPERATING SURGEON: Judson Cadena MD ENGINEER PROCESS: CATALINA Franco ANESTHESIA: General. OPERATIVE PROCEDURE: The patient was brought into the operating room, placed on the OR table in the supine position. All precautions were taken initially including padding for the back and the feet, and Venodyne boots were placed on both lower extremities. At that point, the abdomen was prepped and draped in usual manner. A Veress needle was placed in the left upper quadrant, and a pneumoperitoneum was established. A number 5 bladeless trocar was then placed in the left upper quadrant. Through that trocar, a laparoscopic camera was placed. Under direct vision, a number 5 and number 12 bladeless trocar were placed in the right upper quadrant, and a number 5 bladeless trocar below the left costal margin. At this point, attention was directed to the upper abdomen. Here, the left lobe of the liver hanging over the stomach, was noted to be extremely enlarged. There was also a smooth appearance of the liver, but there were some small areas/white dots that were noted. It was decided because of the patient's history of obesity that a wedge biopsy would be performed. With the electrocautery turned high, on the edge of the left lobe inferiorly, a triangularly-shaped wedge biopsy was removed off the liver edge and sent off the field as specimen to Pathology. There was bleeding from the parenchyma, easily controlled with the electrocautery. At this point, a Taran liver retractor was placed in the epigastrium to retract the left lobe of liver, and the patient was placed in a 20-degree reverse Trendelenburg position by Anesthesia. Attention was now directed to the band tubing which was leading to the band around the stomach. There were adhesions between the omentum and the surface of the liver, and these were lysed with electrocautery until they were free. At this point, the band tubing was noted as was the band, which was noted to be slipped down on the stomach, and there was significant stomach dilated above the band. This had led to the patient's obstruction prior to surgery, which made it unable for her to hold liquids or food. At this point, as the operating surgeon retracted the band towards the patient's right side, the speech assistant surgeon retracted the stomach inferiorly. The electrocautery was used to score the scar tissue off the band on the greater curvature, and this was done until the band was in full view and the greater curvature. Now, the band tubing was grabbed by the speech assistant surgeon, retracted to the patient's left side, as the operating surgeon retracted the stomach tissue inferiorly on the lesser curvature side. Electrocautery was now used to dissect the scar tissue off the band on the lesser curvature side, and when this was completed, the entire band was in full view anteriorly. The band was then cut, opened up from around the stomach, and then cut in two, and both pieces were removed from around the stomach and sent off the field as specimen to Pathology. Attention was now directed to the fibrous capsule that was on the stomach where the had been. With the operating and the speech assistant surgeon lifting up 2 sides, the operating surgeon placed a scissor in between and gently dissected the fibrous capsule off the underlying stomach. The fibrous capsule was then split from inferior to superior until it was totally opened, and it was peeled back on both the lesser and greater curvature sides. This allowed the stomach to be fully free of any fibrous capsule, and at this point, the procedure on the stomach was now terminated. At this point, under direct vision, all trocars removed and pneumoperitoneum was released. The right upper quadrant number 12 trocar site was extended with a scalpel and dissection continued with electrocautery to the fibrous capsule around the port and the subcutaneous tissue on the right anterior rectus muscle. The port was then lifted off the right anterior rectus muscle, sent off the field as a specimen to Pathology with the rest of the band. At this point, all trocar sites received 0.25% Marcaine. The number 12 trocar site was closed with 3-0 Vicryl on the subcutaneous tissue, and then, all trocars were closed with 4-0 Biosyn in subcuticular fashion. Dressings were applied. The patient awoke from anesthesia and transferred out of the operating room to the recovery room in stable condition. EXPECTED BLOOD LOSS: 30 mL Marely [id number]
[2017-11-19] MEDS ORDERED: FAMOTIDINE 20 MG/50 ML IVPB 20 MG/50 ML MG IVPB SCH (22:00)
[2017-11-20 14:30] LABS: SERUM IRON SATURATION 6 % (15-55); TOTAL IRON BINDING CAPACITY 317 ug/dL (250-450); UIBC 298 ug/dL (131-425)
--- NOTE | 2017-11-21 17:04 | PATH ---
Surgical Pathology Report Patient Name: BLANCA PERDOMO [facility]. Rec. #: [id number] /Age/Gender: 1975 (Age: 42) / F Account: [id number] Location: [facility] MED/SURG Taken: 11/19/2017 Received: 11/19/2017 Reported: 11/21/2017 Physicians: Marely Beckham M.D. Specimen(s) Received A: GASTRIC BAND AND PORT B: LIVER BIOPSY Clinical History Gastric band malfunction Final Diagnosis A. GASTRIC BAND AND PORT, REMOVAL: GASTRIC BAND AND PORT. MACROSCOPIC DIAGNOSIS. B. LIVER, BIOPSY: MILD CHRONIC NON-SPECIFIC HEPATITIS. NO SIGNIFICANT STEATOSIS. TRICHROME STAIN SHOWS MILD PATCHY PERIPORTAL FIBROSIS, MILD TO RARE PERIVENULAR, AND RARE MILD PERICELLULAR FIBROSIS. IRON STAIN SHOWS RARE FOCAL STAINING. SEE COMMENT. Comment: The biopsy shows chronic mild nonspecific hepatitis with predominantly portal, rare lobular, and focal interface inflammatory activity (Grade 1-2, Jaiden-Ankush System). The inflammation is mixed comprised of lymphocytes, neutrophils and rare eosinophils. Trichrome stain shows mild patchy periportal fibrosis, mild to rare perivenular, and rare mild pericellular fibrosis (Stage 1, Jaiden-Ankush System). Overall findings are mild and nonspecific. Differential diagnosis is broad and includes infection, medications, metabolic syndrome, alcohol, and toxin. Elevated liver enzymes (AST, ALT) are noted. Suggest clinical/radiological and serologic correlation. Electronically Signed Tona Pavon M.D. Gross Description A. Received fresh labeled "gastric band and port," are 2 portions of a white, rubbery gastric band measuring 5.3 x 2.3 x 0.8 cm and 7.6 x 2.3 x 0.8 cm. The band displays a 39.5 cm in length portion of tubing extending from one aspect. Also received within the same container is a 3 cm in diameter x 1.7 cm in depth tate, circular device, consistent with a port. The port displays a 12 cm in length portion of tubing extending from one aspect. No soft tissue is present. No sections are submitted, gross only. B. Received in formalin labeled "liver biopsy," is a 1.6 x 1.1 x 0.4 cm tate portion of soft tissue, consistent with a liver biopsy. The specimen is bisected and entirely submitted in one cassette. 11/19/2017
== END 2017-11-19 18:00 | disposition home or self-care (01) | DRG 909 ==
LOC: JER 19:23 → JERBED 21:00 → J8W 21:33
PROVIDERS: ADMIT Internal Medicine; ATTEND Internal Medicine
PROC: 0DNW4ZZ Release Peritoneum, Percutaneous Endoscopic Approach (ICD-10-PCS; 2017-11-19)
PROC: 0FB24ZX Excision of Left Lobe Liver, Percutaneous Endoscopic Approach, Diagnostic (ICD-10-PCS; 2017-11-19)
PROC: 0DP64CZ Removal of Extraluminal Device from Stomach, Percutaneous Endoscopic Approach (ICD-10-PCS; principal; 2017-11-19 11:00)
DX: T85.528A Displacement of other gastrointestinal prosthetic devices, implants and grafts, initial encounter (principal); Y84.9 Medical procedure, unspecified as the cause of abnormal reaction of the patient, or of later complication, without mention of misadventure at the time of the procedure; D50.9 Iron deficiency anemia, unspecified; R16.0 Hepatomegaly, not elsewhere classified; K66.0 Peritoneal adhesions (postprocedural) (postinfection); R11.2 Nausea with vomiting, unspecified; Z98.84 Bariatric surgery status; R94.5 Abnormal results of liver function studies; K76.0 Fatty (change of) liver, not elsewhere classified; K59.00 Constipation, unspecified; Z90.5 Acquired absence of kidney
CPT/HCPCS: 36415; 74018-TC-FY; 80048; 80053; 80076; 82728; 83540; 83550; 83735; 85025; 85027; 85610; 85730; 86850; 86900; 86901; 88300-TC; 88307-TC; 93005; 93010; 94760; 99283-25; J0131; J7030